=== PATIENT | female | born 1965 | race Caucasian/White ===

== ENCOUNTER 2018-01-02 08:54 | Emergency (ER) | payer SELFPAY ==
[2018-01-02 09:16] VITALS: TEMP 98.7
[2018-01-02 09:17] VITALS: BMI 27.4
--- NOTE | 2018-01-02 09:33 | C.PDOC ---
History Of Present Illness 52 y/o female with history of Asthma presents to ED sent by clinic with c/o of left sided chest pain 8/10 worse with movement since yesterday. Patient states pain is non radiating and is constant. 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 Time Seen by Provider: 01/02/18 09:23 Chief Complaint (Nursing): Chest Pain History Per: Patient History/Exam Limitations: no limitations Onset/Duration Of Symptoms: Days Current Symptoms Are (Timing): Still Present Quality: "Pain" Past Medical History Reviewed: Historical Data, Nursing Documentation, Vital Signs Vital Signs: Last Vital Signs Temp 98.7 F 01/02/18 09:00 Pulse 65 01/02/18 11:50 Resp 16 01/02/18 11:50 BP 129/71 01/02/18 11:50 Pulse Ox 98 01/02/18 11:50 - Medical History PMH: Diabetes, HTN, Hypercholesterolemia Surgical History: Appendectomy - [facility] Procedures APPLICATION OF SPLINT (10/01/13) Family History: States: No Known Family Hx - Social History Hx Tobacco Use: No Hx Alcohol Use: No Hx Substance Use: No - Immunization History Hx Tetanus Toxoid Vaccination: No Hx Influenza Vaccination: No Hx Pneumococcal Vaccination: No Review Of Systems Constitutional: Negative for: Fever, Chills Cardiovascular: Positive for: Chest Pain Respiratory: Negative for: Cough, Shortness of Breath Gastrointestinal: Negative for: Nausea, Vomiting Skin: Negative for: Rash Neurological: Negative for: Dizziness Physical Exam - Physical Exam Appears: Non-toxic, No Acute Distress Skin: Warm, Dry, No Rash Head: Atraumatic, Normacephalic Oral Mucosa: Moist Neck: Normal ROM, Supple Cardiovascular: Rhythm Regular Respiratory: Normal Breath Sounds, No Rales, No Rhonchi, No Wheezing Gastrointestinal/Abdominal: Soft, No Tenderness, No Guarding, No Rebound Extremity: Normal ROM, No Pedal Edema, Capillary Refill (<2 seconds) Neurological/Psych: Oriented x3, Normal Speech, Normal Cognition ED Course And Treatment - Laboratory Results Result Diagrams: 01/02/18 09:54 01/02/18 09:54 ECG: Interpreted By Me, Viewed By Me ECG Rhythm: Sinus Rhythm Rate From EC (BPM) O2 Sat by Pulse Oximetry: 99 (RA) Pulse Ox Interpretation: Normal Progress Note: Blood work, EKG ordered. Tylenol and Motrin administered Disposition Counseled Patient/Family Regarding: Studies Performed, Diagnosis, Need For Followup, Rx Given - Disposition Referrals: [facility] [Outside] Disposition: HOME/ ROUTINE Disposition Time: 12:22 Condition: STABLE Prescriptions: Ibuprofen [Motrin] 600 mg PO TID #15 tab Instructions: Costochondritis (DC) Forms: Gen Discharge Inst Finnish, [facility] (Finnish) - Clinical Impression Clinical Impression: Acute chest wall pain - Scribe Statement The provider has reviewed the documentation as recorded by the Scribe Gema Dumont All medical record entries made by the Scribe were at my direction and personally dictated by me. I have reviewed the chart and agree that the record accurately reflects my personal performance of the history, physical exam, medical decision making, and the department course for this patient. I have also personally directed, reviewed, and agree with the discharge instructions and disposition.
[2018-01-02 10:06] LABS: BASO # 0.1 K/uL (0.0-0.2); BASO % 1.1 % (0.0-2.0); EOS # 0.2 K/uL (0.0-0.7); HEMOGLOBIN 12.5 g/dL (11.0-16.0); LYMPH % 39.8 % (20.0-40.0); MEAN CELL VOLUME 89.2 fL (81.0-99.0); MEAN CORPUSCULAR HEMOGLOBIN 29.4 pg (27.0-31.0); MONO # 0.6 K/uL (0.0-0.8); MONO % 7.9 % (0.0-10.0); NEUT # 3.7 K/uL (1.8-7.0); NEUT % 49.2 % (50.0-75.0); NRBC % 0.1 % (0.0-2.0); RBC 4.25 Mil/uL (3.80-5.20); RED CELL DISTRIBUTION WIDTH 13.9 % (11.5-14.5); WHITE BLOOD COUNT 7.5 K/uL (4.8-10.8)
[2018-01-02 10:34] LABS: BLOOD UREA NITROGEN 9 mg/dL (7-17); CALCIUM 9.2 mg/dl (8.6-10.4); GFR AFRICAN-AMERICAN > 60; GFR NON-AFRICAN AMERICAN > 60
[2018-01-02] MEDS ORDERED: Lidocaine 5% Patch TD STA (11:31)
[2018-01-02] MEDS ORDERED: Lidocaine 5% Patch TD ONE (11:47)
[2018-01-02 12:10] VITALS: BP 129/71; PULSE 65; RESP 16
[2018-01-02 12:23] VITALS: O2SAT 99
--- NOTE | 2018-01-03 19:23 | CARD ---
APPROVED REPORT EKG Measurement Heart [id number] <Conclusion> Sinus bradycardia with short CA Otherwise normal ECG
== END 2018-01-02 12:55 | disposition home or self-care (01) ==
LOC: C.ER 08:54
DX: R07.89 Other chest pain (principal); I10 Essential (primary) hypertension; E11.9 Type 2 diabetes mellitus without complications; E78.00 Pure hypercholesterolemia, unspecified

== ENCOUNTER 2018-07-31 09:16 | Emergency (ER) | payer OTHER ==
[2018-07-31 09:16] VITALS: BMI 31.5
[2018-07-31 09:29] VITALS: RESP 18; O2SAT 100
--- NOTE | 2018-07-31 09:50 | C.PDOC ---
History Of Present Illness Patient is a 52 year old female with PMHx of DMII and HTN who presents today for sore throat, cough, and nasal congestion. Patient says the cough started 5 days ago and the other symptoms started about 3 days ago. Patient has generalized body aches, ear discomfort, headache, and is coughing up yellow phlegm. Patient admits to subjective fevers. Patient has not taken anything for her symptoms. Patient denies shortness of breath, abdominal pain, nausea, vomiting, diarrhea, or constipation. Time Seen by Provider: 07/31/18 09:31 Chief Complaint (Nursing): Cough, Cold, Congestion History Per: Patient History/Exam Limitations: no limitations Onset/Duration Of Symptoms: Days Current Symptoms Are (Timing): Worse Location Of Pain: Ear(s), Throat, Diffuse Myalgias, Headache Associated Symptoms: Fever, Sore Throat, Cough, Sputum, Sinus Drainage, Myalgias, Nasal Congestion Ear Symptoms: Bilateral: Ear Pain Severity: Moderate Past Medical History Vital Signs: Last Vital Signs Temp 98.8 F 07/31/18 09:26 Pulse 91 H 07/31/18 09:26 Resp 18 07/31/18 09:26 BP 149/96 H 07/31/18 09:26 Pulse Ox 100 07/31/18 09:26 - Medical History PMH: Diabetes, HTN, Hypercholesterolemia Surgical History: Appendectomy - [facility] Procedures APPLICATION OF SPLINT (10/01/13) Family History: States: Unknown Family Hx - Social History Hx Tobacco Use: No Hx Alcohol Use: No Hx Substance Use: No - Immunization History Hx Tetanus Toxoid Vaccination: No Hx Influenza Vaccination: No Hx Pneumococcal Vaccination: No Review Of Systems Constitutional: Positive for: Fever, Sweats, Malaise ENT: Positive for: Ear Pain, Nose Discharge, Nose Congestion, Throat Pain, Throat Swelling Cardiovascular: Negative for: Chest Pain, Palpitations Respiratory: Positive for: Cough. Negative for: Shortness of Breath Gastrointestinal: Negative for: Nausea, Vomiting, Abdominal Pain, Diarrhea, Constipation Genitourinary: Negative for: Dysuria Physical Exam - Physical Exam Appears: In Acute Distress Skin: Normal Color, Warm Head: Atraumatic, Normacephalic Eye(s): bilateral: Normal Inspection Ear(s): Bilateral: Normal, Other (external ear canal mild erythema/excoriations b/l) Nose: Discharge Throat: Erythema, Exudate Neck: Normal Cardiovascular: Rhythm Regular Respiratory: Normal Breath Sounds, No Rales, No Rhonchi, No Wheezing Gastrointestinal/Abdominal: Normal Exam, Bowel Sounds, Soft, No Tenderness Neurological/Psych: Oriented x3 ED Course And Treatment O2 Sat by Pulse Oximetry: 100 Medical Decision Making Medical Decision Making: Impression: Pharyngitis rapid strep and throat culture drawn patient given Azithromycin 500mg and Motrin 600mg patient stable for discharge, continue Azithromycin 250mg po once daily for 4 more days Disposition - Disposition Referrals: [facility] [Outside] [facility] [Outside] Disposition: HOME/ ROUTINE Disposition Time: 10:06 Condition: STABLE Additional Instructions: DAVID HOWE, thank you for letting us take care of you today. Your provider was Vin Ibanez MD and you were treated for COUGHING/CHEST PAIN/SOB. The emergency medical care you received today was directed at your acute symptoms. If you were prescribed any medication, please fill it and take as directed.- Azithromycin 250mg by mouth daily for 4 days. It may take several days for your symptoms to resolve. Return to the Emergency Department if your symptoms worsen, do not improve, or if you have any other problems. Please contact your doctor or call one of the physicians/clinics you have been referred to that are listed on the Patient Visit Information form that is included in your discharge packet. Bring any paperwork you were given at discharge with you along with any medications you are taking to your follow up visit. Our treatment cannot replace ongoing medical care by a primary care provider outside of the emergency department. Thank you for allowing the [facility] team to be part of your care today. Prescriptions: Azithromycin 250 mg PO DAILY #4 tablet Instructions: Sore Throat, Adult (DC), Upper Respiratory Infection (ED) Forms: [employer] (Yoruba), Work Excuse - Clinical Impression Clinical Impression: Pharyngitis
[2018-07-31 10:29] VITALS: BP 133/85; PULSE 89; TEMP 98.3
== END 2018-07-31 10:26 | disposition home or self-care (01) ==
LOC: C.ER 09:16
DX: J02.9 Acute pharyngitis, unspecified (principal); E11.9 Type 2 diabetes mellitus without complications; I10 Essential (primary) hypertension; E78.00 Pure hypercholesterolemia, unspecified

== ENCOUNTER 2018-12-25 09:22 | Outpatient (CLI) | payer OTHER | END 2018-12-25 09:23 | disposition home or self-care (01) | LOC: C.CTH 09:22 | DX: R10.32 Left lower quadrant pain (principal) ==